=== PATIENT | female | born 1955 | race Caucasian/White ===

== ENCOUNTER 2023-12-02 07:22 | Day surgery (SDC) | payer BC, MEDICARE, OTHER ==
[2023-12-02] MEDS ORDERED: Midazolam 1 MG/ML 2 ML SDV IV ONE (07:23)
[2023-12-02] MEDS ORDERED: fentaNYL 100 MCG/2 ML SDV IV ONE (07:23)
[2023-12-02] MEDS ORDERED: Sodium Chloride 0.9% 10 ML Syringe FLUSH PRN (07:30)
[2023-12-02] MEDS ORDERED: Lactated Ringers 1,000 ML IV PRN (07:30)
[2023-12-02] MEDS ORDERED: acetaZOLAMIDE 500 MG Cap.ER PO ONE (09:30)
== END 2023-12-02 09:55 | disposition home or self-care (01) ==
LOC: FB.SDS 07:22
PROVIDERS: ATTEND Ophthalmology
DX: H40.1112 Primary open-angle glaucoma, right eye, moderate stage (principal); H26.9 Unspecified cataract; E03.9 Hypothyroidism, unspecified; E78.2 Mixed hyperlipidemia
CPT/HCPCS: 00142; A9270-GY; C1783; J2250; J3010; J3490; V2632